=== PATIENT | female | born 1960 | race Caucasian/White ===

== ENCOUNTER 2016-10-01 12:09 | Observation (INO) | payer BC ==
--- NOTE | ~2016-10-01 | HP ---
Unit #: [id number] #: [id number] Patient: TIANA VELEZ [id number] [address] [address] [id number] I MR#: [id number] NAME: TIANA VELEZ. ROOM: 547 Age: 55 Sex: F Admission Date: 10/01/2016 : 1960 Attending Physician: Yaritza Schwartz M.D. Referring Physician: Peter Israel M.D. Primary Care Physician: Eugene Fowler D.O. HISTORY AND PHYSICAL CHIEF COMPLAINT Chest pain. HISTORY OF PRESENT ILLNESS The patient is a 55-year-old female, with history of a pulmonary embolism and gastroesophageal reflux disease, brought to the emergency room complaining of the chest pain. The chest pain is mainly in the retrosternal at point tenderness. The pain has been intermittent, lasting 1 to 2 minutes, and persisting since 11:30 this morning. The patient had cardiac workup in the past with negative stress test. The patient had upper endoscopy back in 2013 that showed distal esophageal mucosal ring with classic appearance. The ring was dilated using a 58-[place] Pteersen dilator back in 2013. The patient has been admitted for the above reasons. PAST MEDICAL HISTORY 1. History of pulmonary embolism. 2. Sagittal sinus thrombosis. 3. Mild heart attack in 2009. PAST SURGICAL HISTORY 1. Hysterectomy. 2. Appendectomy. 3. Bilateral breast cysts. 4. Nasal surgery. 5. Tonsillectomy. HOME MEDICATIONS 1. Lipitor. 2. Pantoprazole. 3. Glucophage. 4. Xarelto. ALLERGIES Penicillin causes hives. SOCIAL HISTORY Does not smoke or use alcohol. She lives at home with her . FAMILY HISTORY Positive for colitis, breathing problems, stroke. REVIEW OF SYSTEMS A 14-point review of systems performed and only pertinent positive findings are described above, remaining are negative. Unit #: [id number] #: [id number] Patient: TIANA VELEZ PHYSICAL EXAMINATION VITAL SIGNS: Temperature 98.3, pulse 108, respiratory rate 18, blood pressure 172/92, saturating 97% at room air. GENERAL: Patient is lying on the bed not in acute distress. HEENT: Atraumatic, normocephalic. Pupils equal, round, and reactive to light and accommodation. Extraocular movements are intact. NECK: Supple. CHEST: Patient has point tenderness at the lower rib cage at the retrosternal area, not pleuritic in nature. HEART: Regular rate and rhythm. ABDOMEN: Soft, positive bowel sounds. EXTREMITIES: No cyanosis, no clubbing. NEUROLOGIC: Alert, awake, oriented. No gross focal motor deficit. DIAGNOSTIC STUDIES LABORATORY: Troponin less than 0.05. Sodium 129, potassium 3.3, chloride 96, bicarb 22, glucose 302, BUN 11, creatinine 0.6, AST 23, ALT 31, alkaline phosphatase 98. WBC 11.5, hemoglobin 13.9, hematocrit 40.7, platelets 299. INR 1.2. Troponin less than 0.05. Urine toxicology screen is positive for opiates. IMAGING: CT of the chest showed no PE, no evidence of aortic aneurysm or dissection, visualized aortic branch vessels are patent. No acute pulmonary disease is seen. There may be some mild underlying centrilobular emphysema. Fatty infiltration of the liver. ASSESSMENT AND PLAN 1. Chest pain likely gastrointestinal in nature. 2. Hyponatremia. 3. Hypokalemia. PLAN 1. Admit patient as observation with telemetry. 2. Patient will be receiving IV fluids. 3. Will have a gastroenterology consult for the history of dyspepsia and GERD. 4. Continue serial troponins. 5. Continue with PPI Protonix. 6. Replace the potassium per protocol. 7. Low-dose sliding scale and Accu-Cheks a.c. and h.s. 8. Repeat the labs again in the morning. Dictated by Naman Cage/barbara TD: 10/01/2016 20:38 JOB #: [id number] Unit #: [id number] #: [id number] Patient: TIANA VEELZ HISTORY AND PHYSICAL Page 1 of 1 X YARITZA SCHWARTZ MD HISTORY AND PHYSICAL
--- NOTE | ~2016-10-01 | CT16 ---
[facility]. [facility] A Service of [facility] & [facility] RADIOLOGY TEXT RESULTS PATIENT: TIANA VELEZ LOCATION: [place] [address] : [birth year] UNIT #: [id number] AGE: [address]: Marissa Toney MD SEX: F ORDER DR: [id number] [address] [address] [id number] MR#: [id number] Acc #: [id number] NAME: TIANA VELEZ. : 1960 SEX: F STUDY DATE/TIME: 10/01/2016 13:18 UNIT: SED ROOM: STUDY DESCRIPTION: CT Angio Chest for PE Attending Physician: Peter Israel M.D. Referring Physician: Peter Israel M.D. Ordering Physician: Peter Israel M.D. Primary Care Physician: Eugene Fowler D.O. MEDICAL IMAGING REPORT This report is preliminary unless electronic signature is present. EXAM CT angiography chest for PE, 10/01/2016. HISTORY Chest pain 45 minutes prior to arrival. Previous PE x5. TECHNIQUE CT pulmonary angiography performed with intravenous administration of 100 mL Isovue-370. Three-dimensional reconstructions performed through the pulmonary arteries. This CT exam was performed with one or more of the following radiation dose reduction techniques: automatic exposure control, adjustment of mA and/or kV according to patient size, and iterative reconstruction. COMPARISON Most recent CT of the chest at this institution dated 05/05/2010. FINDINGS Thyroid unremarkable. No axillary, mediastinal, or hilar adenopathy. The heart is normal in size. No pleural effusions. Diffuse fatty infiltration of visualized liver. Similar appearance on prior study. No focal hepatic parenchymal abnormality is seen. Partially visualized gallbladder, spleen, pancreas, adrenal glands, left kidney unremarkable. Esophagus unremarkable. Moderate volume food debris in visualized stomach. Correlate with ingestion history. The lungs show no acute pulmonary disease. There may be some mild underlying centrilobular emphysema. There is no suspicious nodule. The pulmonary arteries are well opacified. No PE. No evidence of aortic aneurysm or dissection. The visualized aortic branch vessels are patent. Note is made of at least two right renal arteries. The bony structures show no acute abnormality. [facility] A Service of [facility] & [facility] RADIOLOGY TEXT RESULTS PATIENT: TIANA VELEZ LOCATION: [facility] [id number] : [birth year] UNIT #: [id number] AGE: [address]: Marissa Toney MD SEX: F ORDER DR: IMPRESSION 1. No PE. No evidence of aortic aneurysm or dissection. Visualized aortic branch vessels are patent. 2. No acute pulmonary disease is seen. There may be some mild underlying centrilobular emphysema. Correlate with risk factors. Lungs otherwise unremarkable. 3. Fatty infiltration of liver. No change from 2010. Remainder of visualized upper abdomen unremarkable. Dictated by... Raul Guidry M.D. THIS IS AN ELECTRONICALLY VERIFIED REPORT Raul Guidry M.D. at 10/03/2016 10:28 PM RIGOBERTO/blane TD: 10/01/2016 16:59 JOB #: [id number] MEDICAL IMAGING REPORT Page 1 of 1
--- NOTE | ~2016-10-01 | EKG ---
PATIENT: TIANA VELEZ UNIT #: [id number] Ventricular Rate: 108 BPM Atrial Rate: 108 BPM P-R Interval: 184 ms QRS Duration: 74 ms Q-T Interval: 334 ms QTC Calculation(Bezet): 447 ms P Pecon[place]: 32 degrees Calculated R [place]: 6 degrees Calculated T Pecon[place]: 57 degrees Diagnosis Line: Sinus tachycardia Diagnosis Line: Otherwise normal ECG Diagnosis Line: When compared with ECG of 09-JUN-2015 21:37, Diagnosis Line: Nonspecific T wave abnormality no longer evident Diagnosis Line: in Inferior leads Diagnosis Line: Confirmed by SERENA CHACON MD ([id number]) on Diagnosis Line: 10/05/2016 8:04:44 AM INTERPRETING MD: OSWALDO BUCHANAN
--- NOTE | ~2016-10-01 | DS ---
Unit #: [id number] #: [id number] Patient: TIANA VELEZ [id number] [facility]. [address] [place], [place] [address] [id number] I MR#: [id number] NAME: TIANA VELEZ. ROOM: 547 Age: 55 Sex: F Admission Date: 10/01/2016 : 1960 Discharge Date: 10/02/2016 Attending Physician: Marissa Toney M.D. Referring Physician: Peter Israel M.D. Primary Care Physician: Eugene Fowler D.O. DISCHARGE SUMMARY SHORT STAY SUMMARY HOSPITAL COURSE This 55-year-old female was admitted to the hospital with atypical chest pain. Details are as per admission H and P. Patient had CT scan of the chest done, which was negative for PE. The patient's cardiac enzymes are negative. Currently on the monitor the patient is in sinus rhythm, and there are no acute ST changes. On admission the patient had sinus tachycardia. Otherwise, EKG was normal. The pain is mostly in the epigastrium, but the patient states her pain has resolved and she wants to go home and have further workup on outpatient basis. GI was consulted on admission. Therefore, the patient will be discharged home after seen by GI. Patient had a Cardiolite stress test done with Dr. Soliz in 2010, which was negative. Patient believes that she may have had another stress test done 3 years ago, which was normal, as per patient and family. The patient stated that she will call and make an appointment with Dr. Mitchell. I also discussed with the patient's , who also believes that the patient is doing well and she should go home. RECOMMENDATIONS ON DISCHARGE 1. Follow up with primary care physician in 1 week and have CBC and BMP done. 2. Patient is advised to follow up with GI as recommended. 3. Patient is advised to schedule an appointment with Dr. Mitchell for followup on outpatient basis. 4. Patient is advised to continue her home medications, which include Lipitor, metformin, Xarelto, Protonix. 5. She is advised to call primary care physician or go to the ER if her condition changes. NOTE: The plan was discussed in detail with the patient and her , and they showed complete understanding. Dictated by... Naman Mckeon TD: 10/02/2016 13:51 Unit #: [id number] #: [id number] Patient: TIANA VELEZ JOB #: [id number] DISCHARGE SUMMARY Page 1 of 1 X Marissa Toney MD X DISCHARGE SUMMARY
[~2016-10-01 12:09] MED LIST: ANUSOL-HC25 MG/SUPP RC; ASPIRIN325 M1 PO; ATENOLOL50 MG PO; CEPHALEXIN500 M1 PO; COUMADIN5 MG PO; HYDROCHLOROTHIA25 MG PO; KCL PO; LIPITOR20 MG PO; LOPID600 MG PO; METFORMIN PO; OMEPRAZOLE40 M1 PO; PANTOPRAZOLE SO40 MG PO; PERCOCET 5-3251 TAB PO; WARFARIN SODIUM6 M1 PO; XARELTO10 MG PO
[2016-10-01 12:47] LABS: EOSINOPHIL# 0.2 X10e3 (0-0.7); EOSINOPHIL% 1.4 % (0.0-7.0); HEMATOCRIT 40.7 % (35.0-45.0); HEMOGLOBIN 13.9 gm/dL (12.0-16.0); LYMPHOCYTE# 1.7 X10e3 (1.0-3.5); LYMPHOCYTE% 14.4 % (17.0-45.0); MEAN CELL VOLUME 86.1 FL (83-96); MEAN CORPUSCULAR HEMOGLOBIN 29.3 PG (28-34); MEAN PLATELET VOLUME 7.6 FL (6.5-11.5); MONOCYTE# 2.3 X10e3 (0-1.0); MONOCYTE% 20.3 % (3.0-12.0); NEUTROPHIL# 7.4 X10e3 (1.5-7.1); NEUTROPHIL% 63.9 % (40-75); PLATELET COUNT 299 X10e3 (140-420); RED BLOOD COUNT 4.73 X10e (3.90-5.30); WHITE BLOOD COUNT 11.5 X10e3 (4.0-10.5)
[2016-10-01 12:48] LABS: POC - CKMB 1.1 ng/mL (0.0-7.9); POC - TROPONIN <0.05 ng/mL (<=0.05)
[2016-10-01 12:58] LABS: ALBUMIN SERUM 4.1 g/dL (3.5-5.0); BILIRUBIN, DIRECT 0.1 mg/dL (0.0-0.2); BILIRUBIN,INDIRECT 0.8 mg/dL (0.0-0.9); BILIRUBIN,TOTAL 0.9 mg/dL (0.2-2.0); BUN/CREATININE RATIO 18.33; CALCIUM SERUM 9.1 mg/dL (8.4-10.2); CREATININE SERUM 0.6 mg/dL (0.6-1.4); DIFF IND YES; GLOM FILT RATE Estimated 101.2 mL/min (>60); POTASSIUM 3.3 mmol/L (3.5-5.1); PROTEIN TOTAL SERUM 7.5 g/dL (6.0-8.3)
[2016-10-01 12:59] LABS: INR 1.2; PROTHROMBIN TIME (PATIENT) 13.9 SECONDS (9.5-12.4)
[2016-10-01 13:05] LABS: PLATELET ESTIMATE NORMAL (NORMAL); RBC NORMAL YES
[2016-10-01 13:07] LABS: PARTIAL THROMBOPLASTIN TIME 31.1 SECONDS (25.6-38.1)
[2016-10-01 14:22] LABS: POC - CKMB <1.0 ng/mL (0.0-7.9); POC - TROPONIN <0.05 ng/mL (<=0.05)
[2016-10-01 15:59] LABS: AMPHETAMINE NEG (NEG); BARBITURATES NEG (NEG); BENZODIAZEPINES NEG (NEG); COCAINE NEG (NEG); MARIJUANA NEG (NEG); OPIATES POS (NEG); TRICYCLIC ANTIDEPRESSANTS NEG (NEG); U METHADONE NEG (NEG)
== END 2016-10-02 15:38 | disposition home or self-care (01) | DRG 313 ==
LOC: SED 12:09 → SEDOF 18:43 → C5B 18:43 → SEDOF 19:17 → C5B 19:17 → SEDOF 19:30 → C5B 19:30
PROVIDERS: Emergency Medicine
DX: R07.89 Other chest pain (principal); E87.1 Hypo-osmolality and hyponatremia; E87.6 Hypokalemia; Z86.711 Personal history of pulmonary embolism; Z79.01 Long term (current) use of anticoagulants; I25.2 Old myocardial infarction; E11.9 Type 2 diabetes mellitus without complications; Z79.84 Long term (current) use of oral hypoglycemic drugs; Z88.0 Allergy status to penicillin; Z90.710 Acquired absence of both cervix and uterus; Z82.3 Family history of stroke; Z83.79 Family history of other diseases of the digestive system
CPT/HCPCS: 36415; 71275; 80048; 80076; 80307; 82553; 82947; 84132; 84484; 85025; 85610; 85730; 93005; 94760; 96361; 96374; 96375; 96376; 99285; C9113; G0378; J2270; Q9967

== ENCOUNTER → 2016-11-09 | Outpatient (CLI) | payer BC ==
--- NOTE | ~2016-11-09 | MY29 ---
[facility] A Service of [facility] RADIOLOGY TEXT RESULTS PATIENT: TIANA VELEZ LOCATION: [facility] : 56 UNIT #: [id number] AGE: [address]: SHANAE FOWLER DO SEX: F ORDER DR: [id number] [facility] [address] [facility]. [place], [place] [address] [id number] O MR#: [id number] Acc #: [id number] NAME: TIANA VELEZ : 1960 SEX: F STUDY DATE/TIME: 11/09/2016 9:20 UNIT: [facility] ROOM: STUDY DESCRIPTION: [facility] SCREENING W/ CAD BILAT Attending Physician: Shanae Fowler D.O. Referring Physician: Shanae Fowler D.O. Ordering Physician: Shanae Fowler D.O. Primary Care Physician: Shanae Fowler D.O. MEDICAL IMAGING REPORT This report is preliminary unless electronic signature is present EXAM Digital screening mammogram with CAD INDICATIONS Routine screening. PROCEDURE Bilateral CC and MLO views obtained on a digital mammography unit. FDA-approved CAD device was utilized. COMPARISON 09/20/2015. FINDINGS Scattered fibroglandular density. No dominant mass or suspicious calcification. IMPRESSION Negative screening mammogram, screen interval 1 year suggested. BIRADS: 1 Negative. Patients over the age of 40 are entered into a reminder system with target due date for the next mammogram. A result letter will also be sent to the patient. Dictated by... Modesto Zhang M.D. THIS IS AN ELECTRONICALLY VERIFIED REPORT Modesto Zhang M.D. at 11/10/2016 7:12 AM [facility] A Service [facility] RADIOLOGY TEXT RESULTS PATIENT: TIANA VELEZ LOCATION: [facility] : 56 UNIT #: [id number] AGE: [address]: SHANAE FOWLER DO SEX: F ORDER DR: CANDELARIO/phillip TD: 11/09/2016 18:40 JOB #: [id number] MEDICAL IMAGING REPORT Page 1 of 1 COPY
== END | disposition home or self-care (01) ==
LOC: CWCC 08:56
DX: Z12.31 Encounter for screening mammogram for malignant neoplasm of breast (principal)
CPT/HCPCS: G0202